=== PATIENT | female | born 1945 | race Caucasian/White ===

== ENCOUNTER 2017-02-16 09:18 | Emergency (ER) | payer MEDICARE | END 2017-02-16 12:05 | disposition home or self-care (01) | LOC: FER 09:18 | DX: M54.08 Panniculitis affecting regions of neck and back, sacral and sacrococcygeal region (principal); G35 Multiple sclerosis; Z87.19 Personal history of other diseases of the digestive system; Z79.899 Other long term (current) drug therapy | CPT/HCPCS: 72110; J2270 ==

== ENCOUNTER 2022-06-01 09:38 | Emergency (ER) | payer MEDICARE ==
[~2022-06-01 09:38] MED LIST: ACETAMINOPHEN325 MG PO; BACLOFEN 10MG T10 MG PO; CENTRUM SILVER1 EAC1 PO; CRESTOR5 MG PO; CYMBALTA 30MG C30 MG PO; DEPLIN-ALGAL O1 EACH PO; ELAVIL25 MG PO; LAXATIVE OF CHOICE; LISINOPRIL40 MG PO; MIRALAX17 GM PO; MYRBETRIQ50 MG PO; NEXIUM40 MG PO; PERCOCET 5-3251 EACH PO; PROBIOTIC1 EAC2 PO; TECFIDERA240 MG PO; TIZANIDINE HCL4 MG PO; VESICARE10 MG PO; ZOFRAN4 MG PO
[2022-06-01 10:49] LABS: BASOPHIL 1.2 % (0-2); EOSINOPHIL 2.2 % (0-7); HCT 40.4 % (37.0-47.0); HGB 13.7 g/dl (12.5-16.0); LYMPHOCYTE 9.2 % (15-48); MCH 32.7 pg (25.0-31.0); MCHC 33.9 g/dL (32.0-36.0); MCV 96.4 fL (78.0-100.0); MONOCYTE 9.8 % (0-12); MPV 9.1 fL (6.0-9.5); NEUTROPHIL 77.1 % (41-80); NRBC 0; PLT 286 K/uL (150-400); RBC 4.19 M/uL (4.20-5.40); RDW 12.9 % (11.5-14.0); WBC 7.4 K/uL (4.0-10.5)
[2022-06-01 11:09] LABS: BUN/CREAT RATIO (CALC) 22.9 RATIO; CREATININE 0.7 mg/dL (0.51-0.95); POTASSIUM 3.8 mmol/L (3.5-5.1)
[2022-06-01] MEDS ORDERED: NORCO 5-325 TA1 EACH PO (15:00)
== END 2022-06-01 17:37 | disposition home or self-care (01) ==
LOC: FER 09:38
PROVIDERS: Emergency Medicine
DX: M79.604 Pain in right leg (principal); M79.605 Pain in left leg
CPT/HCPCS: 36415; 72157; 72158; 80048; 85025; A9579; J1170; J2405